=== PATIENT | female | born 1960 | race Caucasian/White ===

== ENCOUNTER 2017-08-11 09:38 | Emergency (ER) | payer OTHER ==
[~2017-08-11] VITALS: Ht 152.4 cm; Wt 54.4 kg
[~2017-08-11 09:38] MED LIST: CEPH500 PO; CIPR500 PO; CIPRO500 MG PO; HYDACE5 PO; HYDMOR4 PO; HYDR1TAB94 PO; IBUP600 PO; NAPR500 PO; PROM25 PO; Percocet 5-3251 EACH PO; SULTRIDS PO; TAMS.4ER PO; Zofran Odt4 MG SL
[2017-08-11] MEDS ORDERED: NYST237S MT (10:01)
[2017-08-11] MEDS ORDERED: IBUP800 PO (10:01)
[2017-08-11] MEDS ORDERED: Amoxicillin500 MG PO (10:01)
== END 2017-08-11 10:05 | disposition home or self-care (01) ==
LOC: ER 09:38
DX: K08.89 Other specified disorders of teeth and supporting structures (principal); F17.210 Nicotine dependence, cigarettes, uncomplicated; Z79.2 Long term (current) use of antibiotics; Z87.442 Personal history of urinary calculi
CPT/HCPCS: 99283

== ENCOUNTER → 2017-09-11 | Outpatient (CLI) | payer OTHER ==
[~2017-09-11] MED LIST changes: +Amoxicillin500 MG PO; +IBUP800 PO; +NYST237S MT
[2017-09-11 18:17] LABS: Appearance, Urine Clear (Clear); Bilirubin, Urine Neg (Neg); Blood, Urine Neg (Neg); Color, Urine Yellow (P-Yellow); Glucose Qualitative, Urine Neg (Neg); Ketones, Urine Neg (Neg); Leukocyte Esterase, Urine Neg (Neg); Nitrite, Urine Neg (Neg); Protein, Urine Neg (Neg); Specific Gravity, Urine 1.015 (1.003-1.022); Urobilinogen, Urine NORM (Normal)
== END ==
LOC: LAB SRC 09:09
PROVIDERS: Registered Nurse
DX: R31.0 Gross hematuria (principal); R35.0 Frequency of micturition
CPT/HCPCS: 81003; 87086

== ENCOUNTER 2018-01-27 00:43 | Emergency (ER) | payer OTHER ==
[~2018-01-27] VITALS: Ht 170.2 cm; Wt 54.4 kg
== END 2018-01-27 01:42 | disposition left against medical advice (07) ==
LOC: ER 00:43
DX: Z53.21 Procedure and treatment not carried out due to patient leaving prior to being seen by health care provider (principal)

== ENCOUNTER 2024-01-09 15:42 | Emergency (ER) | payer OTHER ==
[~2024-01-09] VITALS: Ht 147.3 cm; Wt 47.6 kg
[2024-01-09 15:49] VITALS: BP 145/96
[2024-01-09] MEDS ORDERED: Diphth,Pertuss(Acell),Tet Vac 0.5 ML VIAL IM ONE (16:45)
[2024-01-09] MEDS ORDERED: Ketorolac Tromethamine 10 MG Tab PO ONE (16:45)
== END 2024-01-09 17:47 | disposition home or self-care (01) ==
LOC: ER 15:42
DX: S06.0X0A Concussion without loss of consciousness, initial encounter (principal); S01.01XA Laceration without foreign body of scalp, initial encounter; L56.8 Other specified acute skin changes due to ultraviolet radiation; H93.239 Hyperacusis, unspecified ear; F17.210 Nicotine dependence, cigarettes, uncomplicated; W14.XXXA Fall from tree, initial encounter
CPT/HCPCS: 12001; 70450; 72125; 90471; 90715; 99283-25; A9270

== ENCOUNTER 2024-01-21 22:32 | Emergency (ER) | payer OTHER ==
[~2024-01-21] VITALS: Ht 147.3 cm; Wt 56.7 kg
[2024-01-21 22:52] VITALS: BP 150/106
== END 2024-01-21 22:57 | disposition home or self-care (01) ==
LOC: ER 22:32
DX: S01.91XD Laceration without foreign body of unspecified part of head, subsequent encounter (principal)